=== PATIENT | female | born 1950 | race Hispanic/Latino ===

== ENCOUNTER 2017-06-13 16:45 | Emergency (ER) | payer BC ==
[2017-06-13] MEDS ORDERED: NACL 0.9% 1000 ML 1,000 ML ONE ×2 (16:53→16:56)
[2017-06-13] MEDS ORDERED: ADRENALIN ONE (17:10)
[2017-06-13] MEDS ORDERED: SODIUM BICARBONATE IV ONE (17:10)
[2017-06-13] MEDS ORDERED: CALCIUM CHLORIDE IV ONE (17:10)
--- NOTE | 2017-06-13 17:26 | Emergency Department Report ---
HPI - General Chief Complaint: Altered Mental Status Time Seen by Provider: 06/13/17 17:23 - HPI HPI: 67-year-old female brought to the ED with unresponsiveness, bleeding at surgical site, patient had right femoral artery pseudoaneurysm repair in the hospital on June 10. The patient's sons stated that patient started bleeding at the surgical site about 30 mns prior to calling 911, patient then had a syncopal episode, and was in and out of consciousness thereafter, when ems , arrived at the scene patient was talking to them according to driller operator, when patient arrived in er, I was a bedside, after patient was moved to the hospital bed, she looked pale, she was unresponsive, pulseless, and cpr was started, ER M.D intubated patient, pressure was placed at the surg site right femoral area to stop the bleeding, and o negative blood was called for, patient received multiple aliquots of epinephrine, one amp of bicarb, i gm of calcium chloride, fsbs was above 200, blood arrived while acls was in progress, and was hanged via rapid infuser. The patient's son waited outside of the door, after several rounds of acls, patient remained pale, pupils were fixed and dilated, no cardiac activity via auscultation, no spont breath, patient at 1720. ED Past Medical Hx - Past Medical History Hx Hypertension: Yes Hx Heart Attack/AMI: No Hx Diabetes: Yes Hx Deep Vein Thrombosis: Yes Hx Liver Disease: No Hx Renal Disease: No Hx Seizures: No Hx Asthma: No Hx COPD: No - Surgical History Hx Cholecystectomy: Yes (OPEN) - Social History Smoking Status: Never Smoker - Medications Home Medications: Home Medications Medication Instructions Recorded Confirmed Last Taken Type Atorvastatin (Nf) [Lipitor] 10 mg PO QHS 07/17/13 06/07/17 01/21/15 History 10mg Risedronate Sodium [Actonel] 150 mg PO QMONTH 07/17/13 06/07/17 01/09/15 History 150mg glyBURIDE [Glyburide] 10 mg PO BID 07/17/13 06/07/17 01/21/15 History 10mg metFORMIN [Glucophage] 1,000 mg PO BID 07/17/13 06/07/17 01/21/15 History 1000mg Naproxen Sodium [Aleve TAB] 1 tab PO PRN PRN 04/19/14 06/07/17 01/21/15 History 220mg Clopidogrel [Plavix] 75 mg PO QDAY #30 tablet 04/25/14 06/07/17 01/21/15 Rx 75mg Amoxicillin/K Clav Tab [Augmentin 1 tab PO BID #28 tablet 01/29/15 06/07/17 Unknown Rx 875MG TAB] Ciprofloxacin HCl [Ciprofloxacin 500 mg PO BID #28 tablet 01/29/15 06/07/17 Unknown Rx TAB] HYDROcodone/APAP 5-325 [[place] 1 each PO Q6H PRN #20 tablet 06/10/17 Unknown Rx 5-325 mg TAB] glyBURIDE [Diabeta] 10 mg PO BIDDIAB tablet 06/10/17 Unknown Rx metFORMIN [Glucophage] 1,000 mg PO BIDDIAB tablet 06/10/17 Unknown Rx ED Review of Systems ROS: Stated complaint: SURGICAL SITE BLEED Other details as noted in HPI Comment: Unobtainable due to pts medical conditions Physical Exam - Physical Exam Physical Exam: acls in progress, patient intubated by er m.d eyes: pupils fixed and dilated lungs: bag ventilation, no spont breath cv: no cardiac activity abd: s,nd ext: right groin, post surg site, oozing blood, pressure dressing applied neuro: no motor activity skin: pale white - Intubation Time Out Performed: Yes Sedative: none Laryngoscope: Lombardo Size: 3 ET Tube Size: 7.5 Tube Secured Depth (cm): 26 Tube Secured Location: teeth Tube Placement Confirmation: visualized tube passing t Patient Tolerated Procedure: well Additional Comments: acls in progress Critical care attestation.: If time is entered above; I have spent that time in minutes in the direct care of this critically ill patient, excluding procedure time. ED Disposition Clinical Impression: Cardiac arrest Disposition: DC-20 Is pt being admited?: No Does the pt Need Aspirin: No Condition: Stable Referrals: PRIMARY CARE,MD [Primary Care Provider] - 3-5 Days
[2017-06-13] MEDS ORDERED: NACL 0.9% 1000 ML 1,000 ML IV ONE (18:56)
== END 2017-06-13 19:05 ==
LOC: ED 16:45
DX: I46.9 Cardiac arrest, cause unspecified (principal); I10 Essential (primary) hypertension; E11.9 Type 2 diabetes mellitus without complications
CPT/HCPCS: 31500; 36430; 86850; 86900; 86901; 86920; 96360; 99285; J0171; J7030; P9016